=== PATIENT | male | born 1970 | race Caucasian/White ===

== ENCOUNTER 2019-07-29 20:56 | Emergency (ER) | payer OTHER ==
[~2019-07-29] VITALS: Ht 170.2 cm; Wt 77.1 kg
--- NOTE | 2019-07-29 20:58 | NUR ---
ED Nurse Note: ERMD at bedside.
[2019-07-29 21:10] VITALS: BP 132/85
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
[2019-07-29] MEDS ORDERED: Acetaminophen 500mg (ES) tab PO ONE (21:30)
[2019-07-29] MEDS ORDERED: Tetanus/Diptheria/Pertussis IM ONE (21:30)
[2019-07-29] MEDS ORDERED: Lidocaine 1% MPF 10mg/ml 5ml INJ ONE (21:30)
[2019-07-29] MEDS ORDERED: Neosporin Oint Ud Pkt TOP ONE (21:30)
--- NOTE | 2019-07-29 21:57 | NUR ---
ED Nurse Note: ERMD at bedside
[2019-07-29] MEDS ORDERED: BACITRACIN15 GM TOPIC (22:14)
[2019-07-29 22:19] VITALS: BP 135/92
--- NOTE | 2019-07-29 22:19 | NUR ---
ER DISCHARGE NOTE: Patient cleared for discharge per ERMD. [employer] officer and patient given discharge instructions and prescriptions, verbalized understanding. Patient aao x 4 and ambulatory upon discharge. Patient stable upon discharge.
== END 2019-07-29 22:19 ==
LOC: EMR 21:26
DX: S61.210A Laceration without foreign body of right index finger without damage to nail, initial encounter (principal); F10.10 Alcohol abuse, uncomplicated; W26.9XXA Contact with unspecified sharp object(s), initial encounter; Y92.9 Unspecified place or not applicable; Z88.0 Allergy status to penicillin; Z23 Encounter for immunization
CPT/HCPCS: 90471; 90715; 99283